=== PATIENT | female | born 2000 | race Two or more races ===

== ENCOUNTER 2020-02-14 11:35 | Observation (INO) | payer MEDICAID ==
[2020-02-14] MEDS ORDERED: PREN-96 PO (12:06)
== END 2020-02-14 12:45 | disposition home or self-care (01) ==
LOC: LDRP 11:35
PROVIDERS: ADMIT Specialist; ATTEND Specialist
DX: O36.8130 Decreased fetal movements, third trimester, not applicable or unspecified (principal); O62.9 Abnormality of forces of labor, unspecified; Z3A.29 29 weeks gestation of pregnancy
CPT/HCPCS: 59025; 81002; G0378

== ENCOUNTER 2020-03-01 10:25 | Observation (INO) | payer MEDICAID ==
[~2020-03-01] VITALS: Ht 165.1 cm; Wt 88.9 kg
[~2020-03-01 10:25] MED LIST: PREN-96 PO
[2020-03-01] MEDS ORDERED: BETAMETHASONE ACET (6MG/ML) 5ML VIAL IM ONE (11:15)
== END 2020-03-01 11:45 | disposition home or self-care (01) ==
LOC: LDRP 10:25
PROVIDERS: ADMIT Obstetrics & Gynecology; ATTEND Obstetrics & Gynecology
DX: O60.03 Preterm labor without delivery, third trimester (principal); Z3A.31 31 weeks gestation of pregnancy
CPT/HCPCS: 59025; 81002; G0378; J0702

== ENCOUNTER 2020-03-02 11:03 | Observation (INO) | payer MEDICAID ==
[~2020-03-02] VITALS: Ht 162.6 cm; Wt 90.3 kg
[2020-03-02] MEDS ORDERED: NIFEdipine 10 MG CAP PO ONE (12:00)
[2020-03-02] MEDS ORDERED: LACTATED RINGER'S 1,000 ML IV ONE (12:00)
[2020-03-02] MEDS ORDERED: BETAMETHASONE ACET (6MG/ML) 5ML VIAL IM ONE (12:00)
== END 2020-03-02 13:45 | disposition home or self-care (01) ==
LOC: LDRP 11:03
PROVIDERS: ADMIT Specialist; ATTEND Specialist
DX: O26.873 Cervical shortening, third trimester (principal); O62.9 Abnormality of forces of labor, unspecified; Z3A.31 31 weeks gestation of pregnancy
CPT/HCPCS: 59025; 81002; 94760; 96360; 96361; 96372; G0378; J0702

== ENCOUNTER 2020-03-09 14:21 | Observation (INO) | payer MEDICAID ==
[2020-03-09] MEDS ORDERED: CALCTAB25 PO (14:57)
[2020-03-09] MEDS ORDERED: NIF10C PO (14:57)
[2020-03-09] MEDS ORDERED: NIFEdipine 10 MG CAP PO ONE (15:30)
[2020-03-09] MEDS ORDERED: LACTATED RINGER'S 1,000 ML IV ONE (15:45)
== END 2020-03-09 17:05 | disposition home or self-care (01) ==
LOC: LDRP 14:21
PROVIDERS: ADMIT Specialist; ATTEND Specialist
DX: O40.3XX0 Polyhydramnios, third trimester, not applicable or unspecified (principal); O60.03 Preterm labor without delivery, third trimester; Z3A.32 32 weeks gestation of pregnancy
CPT/HCPCS: 59025; 76818; 81002; 96360; 96361; G0378

== ENCOUNTER 2020-03-15 11:20 | Observation (INO) | payer MEDICAID ==
[~2020-03-15 11:20] MED LIST changes: +CALCTAB25 PO; +NIF10C PO
== END 2020-03-15 13:42 | disposition home or self-care (01) ==
LOC: LDRP 11:20
PROVIDERS: ADMIT Obstetrics & Gynecology; ATTEND Obstetrics & Gynecology
DX: O60.03 Preterm labor without delivery, third trimester (principal); O26.873 Cervical shortening, third trimester; Z3A.33 33 weeks gestation of pregnancy
CPT/HCPCS: 59025; 76817; 76818; 81002; G0378

== ENCOUNTER 2020-03-22 11:02 | Observation (INO) | payer MEDICAID | END 2020-03-22 12:23 | disposition home or self-care (01) | LOC: LDRP 11:02 | PROVIDERS: ADMIT Specialist; ATTEND Specialist | DX: O26.873 Cervical shortening, third trimester (principal); O40.3XX0 Polyhydramnios, third trimester, not applicable or unspecified; Z3A.34 34 weeks gestation of pregnancy | CPT/HCPCS: 59025; 76817; 76818; 81002; G0378 ==

== ENCOUNTER 2020-03-29 11:18 | Observation (INO) | payer MEDICAID | END 2020-03-29 12:57 | disposition home or self-care (01) | LOC: LDRP 11:18 | PROVIDERS: ADMIT Specialist; ATTEND Specialist | DX: O26.873 Cervical shortening, third trimester (principal); Z3A.35 35 weeks gestation of pregnancy | CPT/HCPCS: 59025; 76818; 81002; G0378 ==